=== PATIENT | female | born 1945 | race Caucasian/White ===

== ENCOUNTER 2018-12-29 10:17 | Emergency (ER) | payer MEDICARE ==
[2018-12-29 10:39] VITALS: BP 142/87
--- NOTE | 2018-12-29 11:41 | UC ---
Head Injury HPI - HPI Summary HPI Summary: Pt presents with c/o of "dripping" feeling and tightness on crown of head. Pt reports that she slipped on 12/24/18 and hit crown of head on doorway. Pt did not fall completely to floor. Pt denies LOC, nausea, vomiting, [place] or worsening of symptoms. Pt reports that she had a "cut" on back of head "that bleed a lot " but has since healed. - History Of Current Complaint Chief Complaint: UCHeadInjury Stated Complaint: HEAD INJ Time Seen by Provider: 12/29/18 11:22 Hx Obtained From: Patient ?: No Onset/Duration: Sudden Onset, Lasting Days, Still Present Severity Currently: Mild Severity Initially: Mild Pain Intensity: 0 Character: Pressure Aggravating Factor(s): Nothing Alleviating Factor(s): Nothing Associated Signs And Symptoms: Positive: Negative - Risk Factors SDH Risk Factor: Negative - Allergies/Home Medications Allergies/Adverse Reactions: Allergies Allergy/AdvReac Type Severity Reaction Status Date / Time No Known Allergies Allergy Verified 12/29/18 10:35 Home Medications: Home Medications ALPRAZolam TAB* [Xanax TAB*] 0.25 mg PO BID PRN 12/29/18 [History Confirmed ] Cholestyramine Resin* [Questran*] 4 gm PO BEDTIME 12/29/18 [History Confirmed ] Ibuprofen TAB* [Advil TAB*] 200 mg PO Q6H PRN 12/29/18 [History Confirmed ] Omeprazole 20 mg PO DAILY 12/29/18 [History Confirmed 12/29/18] PMH/Surg Hx/FS Hx/Imm Hx Previously Healthy: Yes Psychological History: Anxiety - Surgical History Surgical History: Yes Surgery Procedure, Year, and Place: HYSTERECTOMY - Family History Known Family History: Positive: Cardiac Disease - Social History Occupation: Retired Alcohol Use: None Substance Use Type: None Smoking Status (MU): Never Smoked Tobacco Have You Smoked in the Last Year: No Review of Systems All Other Systems Reviewed And Are Negative: Yes Constitutional: Positive: Negative Skin: Positive: Negative Eyes: Positive: Negative ENT: Positive: Negative Respiratory: Positive: Negative Cardiovascular: Positive: Negative Gastrointestinal: Positive: Negative Genitourinary: Positive: Negative Motor: Positive: Negative Neurovascular: Positive: Negative Musculoskeletal: Positive: Negative Neurological: Positive: Negative Psychological: Positive: Negative Is Patient Immunocompromised?: No Physical Exam Triage Information Reviewed: Yes Appearance: Well-Appearing Vital Signs: Initial Vital Signs Temp 98.2 F 12/29/18 10:35 Pulse 80 12/29/18 10:35 Resp 18 12/29/18 10:35 BP 142/87 12/29/18 10:35 Pulse Ox 96 12/29/18 10:35 Vital Signs Reviewed: Yes Eye Exam: Normal, Other - PERRLA ENT Exam: Normal ENT: Positive: Normal ENT inspection, Hearing grossly normal Dental Exam: Normal Neck exam: Normal Neck: Positive: Supple, Nontender, No Lymphadenopathy Respiratory Exam: Normal Respiratory: Positive: Normal breath sounds Cardiovascular Exam: Normal Musculoskeletal Exam: Normal Musculoskeletal: Positive: Strength Intact, ROM Intact, No Edema Neurological Exam: Normal Psychological Exam: Normal Skin Exam: Other - healed laceration on right side back of head, posterior right parietal lobe. no swelling, no bruising, no step off, no neuro deficiencies, no c/o [place], vision changes, difficulty swalloing, one sided weakness or worsening of symptoms. Head Injury Course/Dx - Course Course Of Treatment: I discussed the need to follo wup with PCP and to monitor for worsening symptoms and to seek care immediately if necessary. Pt verbalized understanding and agreed to plan of care. - Differential Dx/Diagnosis Differential Diagnosis/HQI/PQRI: Cerebral Contusion, Concussion Without LOC, Intracranial Bleed, Laceration, Skull Fracture Provider Diagnosis: Concussion, Head injury Discharge - Sign-Out/Discharge Documenting (check all that apply): Patient Departure All imaging exams completed and their final reports reviewed: No Studies - Discharge Plan Condition: Stable Disposition: HOME Patient Education Materials: Head Injury (ED) Referrals: Manny Patterson NP [Primary Care Provider] - If Needed Additional Instructions: PLEASE FOLLOW UP WITH YOUR PCP NEEDED. PLEASE NOTE IF YOU HAVE ANY WORSENING F SYMPTOMS YOU NEED TO SEEK CARE AT THE CLOSEST EMERGENCY ROOM SOON POSSIBLE. - Billing Disposition and Condition Condition: STABLE Disposition: Home
== END 2018-12-29 11:48 | disposition home or self-care (01) ==
LOC: UCCORT 10:17
DX: S06.0X0A Concussion without loss of consciousness, initial encounter (principal); F41.9 Anxiety disorder, unspecified; Z79.899 Other long term (current) drug therapy; W01.198A Fall on same level from slipping, tripping and stumbling with subsequent striking against other object, initial encounter; Y92.9 Unspecified place or not applicable
CPT/HCPCS: 99201; G0463